=== PATIENT | female | born 1960 | race Two or more races ===

== ENCOUNTER 2018-02-07 10:33 | Outpatient (CLI) | payer OTHER | END 2018-02-07 10:42 | disposition home or self-care (01) | LOC: MAMO-SONO 10:33 | DX: Z12.31 Encounter for screening mammogram for malignant neoplasm of breast (principal); N60.21 Fibroadenosis of right breast; N60.22 Fibroadenosis of left breast ==

== ENCOUNTER 2019-02-25 15:18 | Outpatient (CLI) | payer OTHER | END 2019-02-25 15:30 | disposition home or self-care (01) | LOC: MAMO-SONO 15:18 | DX: Z12.31 Encounter for screening mammogram for malignant neoplasm of breast (principal); N60.01 Solitary cyst of right breast; N60.02 Solitary cyst of left breast ==